=== PATIENT | male | born 1985 | race Caucasian/White ===

== ENCOUNTER 2017-09-12 11:41 | Emergency (ER) | payer OTHER ==
[~2017-09-12] VITALS: Ht 180.3 cm; Wt 71.7 kg
[~2017-09-12 11:41] MED LIST: ABILIFY20 MG ORAL; DEPAKOTE ER500 MG ORAL; FLONASE1 SPRAYS NASAL; MULTIVITAMINS1 EAC2 ORAL; PREDNISOLO15 MG/5 M1 ORAL
[2017-09-12 13:10] VITALS: BP 136/99
[2017-09-12 13:30] LABS: APPEARANCE,URINE SLIGHTLY CLOUDY; KETONES,URINE 1+ (NEGATIVE); LEUKOCYTE ESTERASE ,URINE 1+ (NEGATIVE); NITRITE,URINE NEGATIVE (NEGATIVE); PH,URINE 6 (4.5-8.0); PROTEIN,URINE 2+ (NEGATIVE); UROBILINOGEN,URINE NORMAL MG/DL (0.0-1.0)
[2017-09-12 13:34] LABS: ANION GAP 10 mmol/L (5-15); CALCIUM 9.6 MG/DL (8.5-10.1); CARBON DIOXIDE 26 MMOL/L (21-32); CHLORIDE 104 MMOL/L (98-107); GLOMERULAR FILTRATION RATE > 60 mL/min (>60); POTASSIUM 4.3 MMOL/L (3.5-5.1); SODIUM 140 MMOL/L (136-145)
[2017-09-12 13:38] LABS: ALANINE AMINOTRANSFERASE 42 U/L (12-78); ALBUMIN/GLOBULIN RATIO 1.1 (1.0-2.7); ASPARTATE AMINO TRANSFERASE 33 U/L (15-37); LIPASE 87 U/L (73-393); TOTAL PROTEIN 7.5 G/DL (6.4-8.2)
[2017-09-12 13:42] LABS: BACTERIA,URINE FEW /HPF; RBC,URINE 0-2 /HPF (0 - 0); SQUAMOUS EPITHELIAL CELL,UR FEW /LPF (NONE/OCC)
[2017-09-12 13:45] LABS: BASOPHILS % (AUTO) 0.5 % (0.0-2.0); LYMPHOCYTES % (AUTO) 20.6 % (20.0-45.0); MEAN CORPUSCULAR HEMOGLOBIN 31.9 PG (27.0-31.0); MEAN CORPUSCULAR HGB CONC 34.2 G/DL (32.0-36.0); MEAN CORPUSCULAR VOLUME 93 FL (80-99); MONOCYTES % (AUTO) 12.5 % (1.0-10.0); NEUTROPHILS % (AUTO) 66.4 % (45.0-75.0); PLATELET COUNT 198 K/UL (150-450); RED BLOOD COUNT 4.36 M/UL (4.70-6.10); RED CELL DISTRIBUTION WIDTH 11.8 % (11.6-14.8)
[2017-09-12 13:53] LABS: PROTHROMBIN TIME 10.7 SEC (9.30-11.50)
--- NOTE | 2017-09-12 14:59 | Diagnostic Imaging Report ---
Clinical Indication: Abdominal pain Technique: No oral contrast utilized, per emergency room physician request IV administration nonionic contrast. Venous phase spiral acquisition obtained through the abdomen and pelvis. Multiplanar reconstructions were generated. Total dose length product 576 mGycm. CTDIvol(s) 10 mGy. Dose reduction achieved using automated exposure control Comparison: None Findings: Lack of enteric contrast limits assessment of the GI tract. No evidence of diverticulosis or diverticulitis. Normal appendix. There is wall thickening of the ascending colon. There is more questionable wall thickening of the transverse colon. Node definite small bowel wall thickening, although lack of enteric contrast limits assessment for such. A small amount of fluid is seen within the pelvis. There is also some stranding of the pericecal fat. No small bowel distention. No free intraperitoneal air. The distal esophagus, stomach, duodenum are all unremarkable. The liver demonstrates slight focal fatty change in the usual location adjacent to the falciform ligament. Subcentimeter low-attenuation lesions are seen in the right hepatic lobe which are too small to characterize. The gallbladder, bile ducts, pancreas, spleen, adrenals, right kidney are unremarkable. The left kidney demonstrates an interpolar region cyst. No renal or ureteral calculi, hydronephrosis, or hydroureter. There is incidental finding of an accessory left renal artery. No pelvic mass or adenopathy. The included lung bases are clear. The bones are unremarkable. Impression: Wall thickening of the ascending colon, more questionably of the transverse colon, consistent with colitis, nonspecific as regards etiology Small amount of pelvic fluid, presumably related to the above Focal fatty change within the liver Subcentimeter low-attenuation liver lesions which are too small to characterize, most likely benign simple cysts or bile hamartomas. No further followup necessary The CT scanner at [facility] is accredited by the [employer] and the scans are performed using protocols designed to limit radiation exposure to as low as reasonably achievable to attain images of sufficient resolution adequate for diagnostic evaluation.
[2017-09-12] MEDS ORDERED: ZOFRAN4 M3 ORAL (15:07)
[2017-09-12] MEDS ORDERED: ACIDOPHILUS LA1 EAC2 PO (15:07)
[2017-09-12] MEDS ORDERED: TYLENOL EXTRA500 MG ORAL (15:07)
[2017-09-12 15:15] VITALS: BP 132/89
[2017-09-12 15:17] VITALS: BP 132/89
--- NOTE | 2017-09-12 16:02 | Emergency Room Report ---
History of Present Illness General Chief Complaint: Abdominal Pain Source: Patient Present Illness HPI The patient is a 31-year-old male presenting for abdominal pain, nausea, and diarrhea since yesterday. He denies any known sick contacts or recent travel. He went to see his primary doctor today who told him to present to the emergency department. Pain is an 8/10 cramping sensation primarily to the lower abdomen. Worse with bowel movements. He denies vomiting but does any to increased saliva. He admits to chills but denies fever. He denies any other symptoms including back pain, chest pain, shortness of breath, melena, hematochezia Allergies: Coded Allergies: CARBAMAZEPINE (Verified Allergy, Unknown, 08/24/15) CLAVULANIC ACID (Verified Allergy, Unknown, 08/24/15) Patient History Past Medical History: see triage record Pertinent Family History: none Reviewed Nursing Documentation: PMH: Agreed, PSxH: Agreed Nursing Documentation-PMH Past Medical History: No History, Except For History Of Psychiatric Problem: Yes - bipolar Review of Systems All Other Systems: negative except mentioned in HPI Physical Exam Vital Signs Date Time Temp Pulse Resp B/P (MAP) Pulse Ox O2 Delivery O2 Flow Rate FiO2 09/12/17 11:52 97.9 82 18 136/99 98 Room Air Sp02 EP Interpretation: reviewed, normal General Appearance: no apparent distress, alert, GCS 15, non-toxic Head: normocephalic, atraumatic 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 ENT: hearing grossly normal, normal pharynx, no angioedema, normal voice Neck: full range of motion, supple/symm/no masses Respiratory: chest non-tender, lungs clear, normal breath sounds, speaking full sentences Gastrointestinal: normal bowel sounds, soft, non-distended, no guarding, no rebound, tenderness - diffuse Rectal: deferred Genitourinary: normal inspection, no CVA tenderness Musculoskeletal: back normal, gait/station normal, normal range of motion, non- tender Neurologic: alert, oriented x3, responsive, motor strength/tone normal, sensory intact, speech normal Skin: normal color, no rash, warm/dry, well hydrated Medical Decision Making PA Attestation Dr. Caldreon is my supervising physician. Patient management was discussed with my supervising physician Diagnostic Impression: Primary Impression: Gastroenteritis ER Course The patient is a 31-year-old male presenting for abdominal pain, nausea, and diarrhea since yesterday. Differential diagnoses considered but not limited to: Gastroenteritis, GERD, gastritis, appendicitis, pancreatitis PE: Vitals WNL. NAD. Abdomen: Normal appearance. Non distended. No ecchymosis. Increased BS. Diffuse TTP. No McBurney point tenderness. No guarding. No CVA tenderness Labs: CBC unremarkable CMP unremarkable Lipase unremarkable CT of abd pelvis consistent with colitis The patient is given IV fluids and Zofran and is feeling better Have discussed my findings with the patient's primary doctor and we agreed this is most likely gastroenteritis. He'll be treated with symptomatic treatment and will followup with his primary doctor. ER precautions given Laboratory Tests Test 09/12/17 13:00 White Blood Count 5.0 K/UL (4.8-10.8) Red Blood Count 4.36 M/UL (4.70-6.10) L Hemoglobin 13.9 G/DL (14.2-18.0) L Hematocrit 40.6 % (42.0-52.0) L Mean Corpuscular Volume 93 FL (80-99) Mean Corpuscular Hemoglobin 31.9 PG (27.0-31.0) H Mean Corpuscular Hemoglobin Concent 34.2 G/DL (32.0-36.0) Red Cell Distribution Width 11.8 % (11.6-14.8) Platelet Count 198 K/UL (150-450) Mean Platelet Volume 6.0 FL (6.5-10.1) L Neutrophils (%) (Auto) 66.4 % (45.0-75.0) Lymphocytes (%) (Auto) 20.6 % (20.0-45.0) Monocytes (%) (Auto) 12.5 % (1.0-10.0) H Eosinophils (%) (Auto) 0.0 % (0.0-3.0) Basophils (%) (Auto) 0.5 % (0.0-2.0) Prothrombin Time 10.7 SEC (9.30-11.50) Prothrombin Time INR 1.0 (0.9-1.1) PTT 30 SEC (23-33) Urine Color Yellow Urine Appearance Slightly cloudy Urine pH 6 (4.5-8.0) Urine Specific [place] 1.015 (1.005-1.035) Urine Protein 2+ (NEGATIVE) H Urine Glucose (UA) Negative (NEGATIVE) Urine Ketones 1+ (NEGATIVE) H Urine Occult Blood 1+ (NEGATIVE) H Urine Nitrite Negative (NEGATIVE) Urine Bilirubin Negative (NEGATIVE) Urine Urobilinogen Normal MG/DL (0.0-1.0) Urine Leukocyte Esterase 1+ (NEGATIVE) H Urine RBC 0-2 /HPF (0 - 0) H Urine WBC 2-4 /HPF (0 - 0) Urine Squamous Epithelial Cells Few /LPF (NONE/OCC) Urine Bacteria Few /HPF (NONE) Sodium Level 140 MMOL/L (136-145) Potassium Level 4.3 MMOL/L (3.5-5.1) Chloride Level 104 MMOL/L (98-107) Carbon Dioxide Level 26 MMOL/L (21-32) Anion Gap 10 mmol/L (5-15) Blood Urea Nitrogen 23 mg/dL (7-18) H Creatinine 1.0 MG/DL (0.55-1.30) Estimate Glomerular Filtration Rate > 60 mL/min (>60) Glucose Level 93 MG/DL (74-106) Calcium Level 9.6 MG/DL (8.5-10.1) Total Bilirubin 0.5 MG/DL (0.2-1.0) Aspartate Amino Transferase (AST) 33 U/L (15-37) Alanine Aminotransferase (ALT) 42 U/L (12-78) Alkaline Phosphatase 52 U/L (46-116) Total Protein 7.5 G/DL (6.4-8.2) Albumin 3.9 G/DL (3.4-5.0) Globulin 3.6 g/dL Albumin/Globulin Ratio 1.1 (1.0-2.7) Lipase 87 U/L (73-393) Lab Results Impression Unremarkable CT/MRI/US Diagnostic Results CT/MRI/US Diagnostic Results : Imaging Test Ordered: CT abd/pelvis Impression CT of abd pelvis consistent with colitis Last Vital Signs Date Time Temp Pulse Resp B/P (MAP) Pulse Ox O2 Delivery O2 Flow Rate FiO2 09/12/17 15:17 97.9 79 18 132/89 99 Room Air Status: improved Disposition: HOME, SELF-CARE Condition: Improved Scripts Acetaminophen* (TYLENOL EXTRA STRENGTH*) 500 Mg Tablet 500 MG ORAL Q8H Y for Prn Headache/Temp > 101, #30 TAB 0 Refills Prov: TERZIAN,RANDI P.A. 09/12/17 Lactobacillus Acidophilus (ACIDOPHILUS LACTOBACILLI) 1 Each Capsule 1 EACH PO DAILY, #30 CAP Prov: RANDI HERNANDEZ.A. 09/12/17 Ondansetron* (ZOFRAN*) 4 Mg Tablet 4 MG ORAL Q6H Y for Nausea & Vomiting, #15 TAB Prov: RANDI HERNANDEZ.A. 09/12/17 Patient Instructions: Viral Gastroenteritis, Adult, Abdominal Pain, Adult Additional Instructions: I discussed my findings with the patient. All questions and concerns have been answered. Treatment and medication compliance have been addressed. I advised the patient that they need to follow up with your primary doctor within one week. Return to ED if symptoms worsen, new symptoms arise, or if needed for any reason. Patient verbalized understanding of discharge instructions. RANDI HERNANDEZ Sep 12, 2017 16:02
== END 2017-09-12 15:24 | disposition home or self-care (01) ==
LOC: EMR 12:25
DX: K52.9 Noninfective gastroenteritis and colitis, unspecified (principal); F31.9 Bipolar disorder, unspecified; Z88.8 Allergy status to other drugs, medicaments and biological substances
CPT/HCPCS: 36415; 74177; 80053; 81003; 83690; 85025; 85610; 85730; 96361; 96374; 99284; J2405; Q9967